=== PATIENT | female | born 1975 | race Caucasian/White ===

== ENCOUNTER 2019-04-22 | Emergency (ER) | payer OTHER ==
[2019-04-22 14:23] LABS: HEMATOCRIT 40.1 % (37.0-47.0); HEMOGLOBIN 13.3 g/dl (12.0-16.0); IMMATURE GRANULOCYTES 0.5 % (0.0-5.0); MEAN CELL VOLUME 84.1 fL CALC (80.0-100.0); MEAN CORPUSCULAR HGB 27.9 pG CALC (26.0-32.0); MEAN CORPUSCULAR HGB CONC 33.2 g/L CALC (32.0-36.0); NEUT# 7.3 thou/uL (2.00-7.15); RED BLOOD COUNT 4.77 mill/uL (4.20-5.60); RED CELL DISTRI WIDTH 12.7 % (11.5-15.5)
[2019-04-22 14:41] LABS: ALBUMIN 4.4 g/dL (3.2-5.0); ALKALINE PHOSPHATASE 104 u/l (38-126); ANION GAP 13 (6-22 (CALC)); BILIRUBIN, TOTAL 0.3 mg/dL (0.0-1.4); BUN 16 mg/dL (7-17); BUN/CREATININE RATIO 23 (12-20 (CALC)); CARBON DIOXIDE 27 mmol/l (22-30); CHLORIDE 101 mmol/l (95-108); CREATININE 0.7 mg/dL (0.5-1.0); GFR > 60 ML/MIN (>=60 (CALC)); GFR FOR AFR.AMER. > 60 ML/MIN (>=60 (CALC)); LIPASE 261 u/l (23-300); MAGNESIUM 1.6 mg/dL (1.6-2.3); POTASSIUM 3.3 mmol/l (3.5-5.1); SGOT/AST 32 u/l (14-36); SODIUM 138 mmol/l (137-146)
[2019-04-22 15:36] LABS: URINE BILIRUBIN - DIPSTICK NEGATIVE (NEGATIVE); URINE BLOOD DIPSTICK NEGATIVE (NEGATIVE); URINE COLOR YELLOW; URINE GLUCOSE - DIPSTICK NEGATIVE (NEGATIVE); URINE KETONE NEGATIVE (NEGATIVE); URINE LEUK ESTERASE NEGATIVE (NEGATIVE); URINE NITRITE - DIPSTICK NEGATIVE (Negative); URINE PROTEIN - DIPSTICK NEGATIVE (NEG-TRACE); URINE UROBILINOGEN - DIPSTICK 0.2 E.U./dL (0.2)
== END 2019-04-22 15:55 | disposition home or self-care (01) | DRG 310 ==
DX: R00.2 Palpitations (principal); R03.0 Elevated blood-pressure reading, without diagnosis of hypertension; T44.4X5A Adverse effect of predominantly alpha-adrenoreceptor agonists, initial encounter; J32.9 Chronic sinusitis, unspecified; E87.6 Hypokalemia

== ENCOUNTER 2020-04-07 09:06 | Inpatient (IN) | payer OTHER ==
[~2020-04-07] VITALS: Ht 177.8 cm; Wt 87.7 kg
[2020-04-07] VITALS (9 sets, daily range): BP systolic 135–178; BP diastolic 55–100
[~2020-04-07 09:06] MED LIST: ADDERALL7.5 MG PO; LORTAB 1010 MG PO; MOTRIN200 MG PO
--- NOTE | 2020-04-07 14:15 | NUR ---
PT ARRIVED TO ROOM 273 FROM OR AT 1415 VIA STRETCHER WITH OR STAFF; DROWSY AND ORIENTED X 3. STABLE CONDITION. C/O 4/10 PAIN TO LEFT KNEE. RESPIRATIONS EVEN AND UNLABROED ON ROOM AIR. DRESSING AND TROY WRAP TO LEFT KNEE CDI. LACTATED RINGERS INFUSING UPON ARRIVAL TO 20G IN LEFT HAND; IV SITE APPEARS HEALTHY. BLOOD PRESSURE ELEVATED. ORIENTED TO ROOM AND CALL LIGHT SYSTEM. POC REVIEWED. PT ENCOURAGED TO VERBALIZE CONCERNS; GIVEN PERSON BELONGINGS AND ICE WATER. SAFETY MEASURES IN PLACE. CALL LIGHT WITHIN REACH.
--- NOTE | 2020-04-07 15:32 | NUR ---
SCD INTACT TO RLE; IS AT BEDSIDE. EDUCATION PROVIDED AND RETURN DEMONSTRATION.
--- NOTE | 2020-04-07 15:46 | NUR ---
PT ATTEMPTED TO EVALUATE PATIENT, HOWEVER, PATIENT STATED SHE IS EXPERIENCING SEVERE L KNEE PAIN (PS 8/10) RIGHT NOW AFTER SURGERY AND WANTED TO HAVE PAIN MEDICATION FIRST AND REQUESTED TO BE SEEN AFTER AN HOUR. PT INFORMED PATIENT THE NEXT EARLIEST SHE CAN BE SEEN FOR EVALUATION IS TOMORROW. PATIENT AGREED AND REQUESTED TO BE SEEN TOMORROW INSTEAD.
--- NOTE | 2020-04-07 16:00 | NUR ---
REPORT RECEIVED FROM KAYCE ORELLANA;PT RESTING IN SEMI FOWLERS POSITION;RESPIRATIONS EVEN AND UNLABORED ON RA; PT REPORTS LEFT KNEE PAIN RATING 8/10 ON THE PAIN SCALE AND REQUESTS PAIN MEDICATION, PT MEDICATED WITH PRN DILAUDID 1MG IVP PER ORDER;IV FLUIDS INFUSING WITH EASE PER ORDER;PT ASSISTED TO BATHROOM WITH A STEADY GAIT AND ASSISTED DEVICE;PT EDUCATED TO CALL FOR ASSISTANCE WHEN COMPLETED;CALL LIGHT IN REACH;FREQUENT ROUNDING MADE.
--- NOTE | 2020-04-07 16:36 | NUR ---
SHEILA HADDAD AT BEDSIDE DISCUSSING POC.
--- NOTE | 2020-04-07 18:24 | NUR ---
PT REPORTS LEFT KNEE PAIN RATING 6/10 ON THE PAIN SCALE AND REQUESTS PRN PAIN MEDICATION, PT MEDICATED WITH PRN PERCOCET 10/325MG 1 COMBO PO AT THIS TIME;PT DENIES ANY ADDITIONAL NEEDS;CALL LIGHT IN REACH;FREQUENT ROUNDA MADE.
--- NOTE | 2020-04-07 19:45 | NUR ---
PT ASSESSED AT THIS TIME. SHE HAS ICE PACK PLACED TO LEFT KNEE. REPORTS PAIN LEVEL 4/10 ON PAIN SCALE. PT REPORTS THAT SHE HAS BEEN UP MOVING AROUND USING WALKER. RECEIVED PARTIAL BATH. POC AND MEDICATION SCHEDULE DISCUSSED WITH PT AT THIS TIME.
--- NOTE | 2020-04-07 20:45 | NUR ---
PT MEDICATED FOR PAIN AT THIS TIME, DENIES ANY OTHER NEEDS. IV FLUIDS RUNNING @20 KVO.
--- NOTE | 2020-04-07 23:14 | NUR ---
PT MEDICATED FOR PAIN 10/10 ON PAIN SCALE. ICE WATER REPLENISHED AT THIS TIME.
--- NOTE | 2020-04-08 00:39 | NUR ---
PT UP TO BSC 325CC OF CLEAR YELLOW URINE OUTPUT. ICEPACKS PLACED TO L.KNEE AND PT ASSISTED WITH BEDDING. DENIES ANY OTHER NEEDS AT THIS TIME, BUT HAS BEEN ENCOUARGED TO CALL, CONFIRMED CALL LIGHT IS AT SIDE W/IN REACH.
--- NOTE | 2020-04-08 02:42 | NUR ---
PT MEDICATED FOR PAIN 8/10 ON PAIN SCALE. AMBULATED UP TO BSC USING WALKER. ICEPACKS AT BEDSIDE WITH ICE FOR USE PRN
[2020-04-08 04:17] VITALS: BP 140/78
--- NOTE | 2020-04-08 04:26 | NUR ---
PT MEDICATED ORDERS PROVIDE AND ASSISTED IN REPOSITIONING LLE FOR COMFORT, 2X ICEPACKS PLACED TO L.KNEE. PT STATED SHE KEEPS GETTING UP AND DOWN TRYING TO MAKE IT MORE COMFORTABLE.
[2020-04-08 04:57] LABS: HEMOGLOBIN 10.2 g/dl (12.0-16.0)
--- NOTE | 2020-04-08 07:10 | NUR ---
REPORT RECEIVED FROM KAYCE WU.
--- NOTE | 2020-04-08 08:20 | NUR ---
PT RESTING IN SEMI FOWLERS POSITION,A&O X3;VS OBTAINED AND ASSESSMENT COMPLETED;PT POD #1 LEFT TOTAL KNEE ARTHROPLASTY;PT REPORTS LEFT KNEE PAIN RATING 7/10 ON THE PAIN SCALE AND REQUESTS PAIN MEDICATION, PT TO BE MEDICATED WITH PRN PERCOCET 10/325MG PO 2 COMBO PER ORDER;RESPIRATIONS EVEN AND UNLABORED ON RA,CLEAR LUNG SOUNDS;I.S. AT BEDSIDE AND PT EDUCATED ON USE AND ENCOURAGED USE 10X PER HOUR;ABDOMEN SOFT ON PALPATION AND ACTIVE IN ALL 4 QUADRANTS;DRESSING TO LEFT KNEE CDI;STRONG PEDAL PULSES NOTED;#20G TO LEFT HAND INFUSING LR @ 20ML/HR,SITE APPEARS HEALTHY;PT DENIES ANY ADDITIONAL NEEDS AT THIS TIME AND IS ENCOURAGED TO CALL FOR ASSISTANCE IF NEEDED;FALL PRECAUTIONS IN PLACE WITH BED IN THE LOWEST POSITION AND CALL LIGHT IN REACH;FREQUENT ROUNDS MADE.
[2020-04-08 08:26] VITALS: BP 138/82
--- NOTE | 2020-04-08 08:39 | NUR ---
AT BEDSIDE DISCUSSING POC.
--- NOTE | 2020-04-08 09:50 | NUR ---
PT AMBULATING THE HALLWAY WITH PHYSICAL THERAPY AND ASSISTED DEVICE.
--- NOTE | 2020-04-08 11:45 | NUR ---
PT RESTING IN SEMI FOWLERS POSITION;RESPIRATIONS EVEN AND UNLABORED ON RA;PT REPORTS LEFT KNEE PAIN AND REQUESTS PRN PAIN MEDICATION, PT MEDICATED WITH PRN TORADOL 30MG IVP;IV SITE REMAINS PATENT;DRESSING TO LLE CDI;PT DENIES ANY ADDITIONAL NEEDS AND IS ENCOURAGED TO CALL FOR ASSISTANCE IF NEEDED;FALL PRECAUTIONS IN PLACE WITH CALL LIGHT IN REACH;FREQUENT ROUNDS MADE.
--- NOTE | 2020-04-08 12:30 | NUR ---
PT MEDICATED WITH PRN PERCOCET 10/325MG PO 2 COMBO FOR LEFT KNEE PAIN RATING 6/10 ON THE PAIN SCALE PER REQUEST;PT DENIES ANY ADDITIONAL NEEDS;CALL LIGHT IN REACH;FREQUENT ROUNDS MADE.
--- NOTE | 2020-04-08 14:34 | NUR ---
PHYSICAL THERAPY AT BEDSIDE WORKING WITH PT.
--- NOTE | 2020-04-08 15:07 | NUR ---
PM TX- PT SAFELY AND INDEPENDENTLY ASSUME SITTING FROM SUPINE AND STOOD UP WITH GOOD IMMEDIATE STANDING BALANCE. PT THEN PROCEEDED TO AMBULATE IN THE HALLWAY W/ RW X 100 FT X 2 DEMONSTRATING IMPROVED GAIT PATTERN INSTRUCTED BY THERAPIST. AFTERWARDS, PT PERFORMED SEATED HEEL-TOE RAISES X 10 REPS X 2 SETS; HEEL SLIDES X 10 REPS X 2 SETS; ACTIVE SEATED HAMSTRING STRETCH X 15 SEC HOLD X 5 SETS. PT REPORTS FEELING BETTER POST TX. SHE WAS INSTRUCTED TO APPLY COLD PACK ON L KNEE X 15 MINS X 5X/DAY. LEFT PT SAFELY SITTING ON EDGE OF BED AT THE END OF TX.
[2020-04-08 16:00] VITALS: BP 156/88
--- NOTE | 2020-04-08 16:30 | NUR ---
PT RESTING IN RECLINER;RESPIRATIONS EVEN AND UNLABORED ON RA;PT REPORTS LEFT KNEE PAIN RATING 5/10 ON THE PAIN SCALE AND REQUESTS PAIN MEDICATION, PT MEDICATED WITH PRN PERCOCET 10/325MG PO 2 COMBO AT THIS TIME;IV SITE REMAINS PATENT;LLE DRESSING REMAINS CDI;PT DENIES ANY ADDITIONAL NEEDS AND IS ENCOURAGED TO CALL FOR ASSISTANCE IF NEEDED;CALL LIGHT IN REACH;FREQUEN ROUNDS MADE.
--- NOTE | 2020-04-08 17:40 | NUR ---
PT AMBULATING THE HALLWAY WITH A STEADY GAIT AND ASSISTED DEVICE.
[2020-04-08 19:15] VITALS: BP 145/92
--- NOTE | 2020-04-08 21:26 | NUR ---
PT MEDICATED FOR PAIN 6/10 ON PAIN SCALE. SHE VOICED CONCERN REGARDING HER LEG BEING EDEMATOUS AND REDDENED/WARM TO TOUCH. INCISION APPEARS CDI AND MINIMAL REDNESS TO INCISION AREA, BUT SURROUNDING AREA TO KNEE IS MILDLY WARM TO TOUCH AND APPEARS MILDLY RED WITH MODERATE EDEMA. PEDAL PULSES ARE INTACT AND CIRCULATION APPEARS INTACT AT THIS TIME. PT C/O FEELING COLD, TEMPERATURE ASSESSED AT THIS TIME TO BE 98.0 INSTRUCTED HER TO CALL WITH ANY FURTHER CONCERNS, VERBALIZED UNDERSTANDING. CALL LIGHT AT SIDE.
--- NOTE | 2020-04-08 22:17 | NUR ---
PT CALLED TO REPORT THAT HER KNEE WAS HURTING, UPON ENTERING THE ROOM, SHE WAS SITTING IN RESTROOM, DENYING NEED FOR ASSISTANCE, WALKER AT SIDE. PT'S BED WAS STRAIGHTENED AT THIS TIME. PT REPORTS THAT IT FEELS BETTER TO BE UP AND MOVING THAN LAYING IN BED, REPORTS THAT HIS KNEE THROBS LESS WHEN SHE IS UP. PT PROCEEDED TO WALK THE GILLIS FOR EXERCISE AND VISITED A LITTLE AT THE NURSES STATION, [employer]ER[employer] MANAGER PLACED A RECLINER NEXT TO HER BED AND PREPARED IT FOR COMFORT, PT STATES SHE IS GOING TO TRY THIS TO SEE IF IT HELPS HER GET COMFORT.
--- NOTE | 2020-04-09 01:24 | NUR ---
PT UP WALKING AROUND THE ROOM W/WALKER, SHE CALLED ASKING FOR PAIN MEDICATION. MEDICATED FOR REPORTED PAIN 7/10 ON PAIN SCALE. PT SELF AMBULATED WITH USE OF WALKER TO RESTROOM, PT STATED SHE WILL MOVE BACK TO THE WALKER, DENIED ANY ASSISTANCE. I INSTRUCTED PT TO CALL IF SHE NEEDS ANY ASSISTANCE AT ALL OR FEELS UNSTEADY, NOT TO GET UP BY HERSELF, SHE VERBALIZED UNDERSTANDING.
[2020-04-09 04:00] VITALS: BP 152/88
--- NOTE | 2020-04-09 04:00 | NUR ---
PT AMBULATING HALLWAY. ASKED FOR PAIN MEDICATION/PROVIDED ORDERS PROVIDE AND WALKED WITH PT BACK TO ROOM. DENIES ANY OTHER NEEDS. ENCOURAGED HER TO CALL NEEDS ARISE.
--- NOTE | 2020-04-09 05:26 | NUR ---
PT SITTING IN RECLINER, REPORTS HAVING PAIN 5/10 ON PAIN SCALE. DENIES ANY OTHER NEEDS OF ASSISTANCE AT THIS TIME. CALL LIGHT W/IN REACH.
[2020-04-09 06:34] LABS: HEMATOCRIT 31.2 % (37.0-47.0); HEMOGLOBIN 9.7 g/dl (12.0-16.0)
[2020-04-09 07:56] VITALS: BP 141/71
--- NOTE | 2020-04-09 07:56 | NUR ---
RECIEVED REPORT FROM KAYCE WU. PT SITTING ON SIDE OF BED UPON ENTERING ROOM. INTRODUCED SELF TO PT AND DISCUSSED POC. PT IS A/OX3. ASSESSMENT AND VITALS COMPLETED. BP 141/71, HR 77, O2 100% ON ROOM AIR. RESPIRATIONS ARE EVEN AND UNLABORED WITH NO SIGNS OF DISTRESS NOTED. RHEA SOUNDS ARE CLEAR. HEART RHYTHM IS NORMAL . BOWEL SOUNDS ARE ACTIVE IN ALL QUADRANTS, LAST REPORETD BM 04/06/2020. STOOL SOFTNER AND MIRLAX ADMINISTERED. #20G IN LEFT HAND FLUSHED, SITE APPEARS TO BE LEAKING. PT REFUSED START OF ANOTHER IV STATING " IM GOING TO BE GOING HOME." PT COMPLAINS OF 3/10 PAIN IN LEFT KNEE.PT REFUSES ANY MEDICATION AT THIS TIME. PT IS POD #2 FROM RIGHT KNEE REPLACEMENT. DRESSING REAMINS CDI AT THIS TIME. ALL SAFETY AND ISOLATION PRECAUTIONS ARE IN PLACE WITH CALL LIGHT IN REACH. WILL CONTINUE TO MONITOR
--- NOTE | 2020-04-09 10:10 | NUR ---
PT COMPLAINS OF 10/10 PAIN IN LEFT KNEE. PAIN MEDICATION ADMINISTERED. RESPIRATIONS ARE EVEN AND UNLABORED ON ROOM AIR. PT DENIES ANY ADIDTIONAL NEEDS AT THIS TIME. ALL SAFETY PRECAUTIONS ARE IN PLACE WITH CALL LIGHT IN REACH. WILL CONTINUE TO MONITOR
--- NOTE | 2020-04-09 10:38 | NUR ---
REASSESSMENT OF PAIN AT THIS TIME RESULTING IN 01/02. RESPIRATIONS REAMINS EVEN AND UNLABORED ON ROOM AIR. PT RESTING IN CHAIR. ALL SAFETY PRECAUTIONS ARE IN PLACE WITH CALL LIGHT IN REACH. WILL CONTINUE TO MONITOR
[2020-04-09] MEDS ORDERED: ONDANSETRON4 MG/2 M1 IV (11:08)
[2020-04-09] MEDS ORDERED: SENNA-PLUS1 TAB PO (11:09)
[2020-04-09] MEDS ORDERED: MOTRIN800 MG PO (11:24)
--- NOTE | 2020-04-09 11:48 | NUR ---
AM TX- PT WAS SEEN FOR GT THIS AM. PROVIDED SBA ON TRANSFERS AND AMB W/ RW. CONSTANT VERBAL CUES FOR PROPER POSTURE AND CORRECT GAIT PATTERN. PT WAS ABLE TO FOLLOW INSTRUCTIONS AND EXECUTED GOOD GAIT PATTERN ALTHROUGHOUT. SHE REPORTS KNEE FEELING LOOSENED UP SHE AMBULATED IN THE HALLWAY W/ RW AND SBA X 100 FT X 2. PT ALSO REPORTED INCREASING PRESSURE AT THE BACK OF KNEE THAT FEELS LIKE A [place]QUET DURING PROLONGED RECUMBENT SUPINE POSITION. PT RETURNED TO HER ROOM AND REQUESTED TO SIT IN THE CHAIR. PT PERFORMED SITTING HEEL SLIDES AND ISOMETRIC LONG ARC QUADS X 10 SEC HOLD X 10 REPS X 3 SETS; SEATED HEEL SLIDES X 10 REPS X 3 SETS. LEFT PT W/O COMPLAINTS. CALL BAEZ WAS HANDED TO HER. [facility]: 16 POINTS
[2020-04-09] MEDS ORDERED: KLONOPIN0.5 MG PO (12:19)
--- NOTE | 2020-04-09 12:44 | NUR ---
PT EDUCATED ON DISCHARGE INSTRUCTIONS. PT VERBALIZED UNDERSTANDING. PT BEING DISCHARGED WITH DR DAVIS [facility]. IV REMOEVED WITH CATHATER STILL INTACT. PT RESTING IN SEMI FOWLERS POSITION WITH ICE APPLIED TO LEFT KNEE. TEGADURM APPLIED WITH 4X4 GAUZE, DRESSING IS CDI AT THIS TIME. AWAITING FOR TRANSPORTATION AT THIS TIME. WILL CONTINUE TO MONITOR
--- NOTE | 2020-04-09 14:03 | NUR ---
PT REVIEWED HEP WITH PATIENT AND PATIENT ABLE TO CORRECTLY AND SAFELY PERFORM EXERCISES WHICH INCLUDE: AAROME L HIP FLEXION AND ABDUCTION USING BED SHEET X 10 REPS ON EACH, QUADS MUSCLE SETTING X 6 SECS HOLD X 10 REPS, HEEL SLIDES X 10 REPS, ANKLE PUMPS X 10 REPS. AMPAC = 16
--- NOTE | 2020-04-09 14:10 | NUR ---
Discharge instructions given. Patient verbalizes understanding of same. Discharged in stable condition via Wheelchair to Home with staff. All belongings sent with pt. PT DISCHARGED IN STABLE CONDITION VIA WHEELCHAIR WITH ALL BELONGINGS AND DISCHARGE INSTRUCTIONS. PT DISCHARGED WITH [facility]
== END 2020-04-09 14:12 | disposition home health service (06) | DRG 470 ==
LOC: ORM 09:06 → MS2 14:15 → ORM 15:00 → MS2 04-09 14:12
PROVIDERS: ADMIT Internal Medicine; ATTEND Orthopaedic Surgery
PROC: 0SRD0JA Replacement of Left Knee Joint with Synthetic Substitute, Uncemented, Open Approach (ICD-10-PCS; principal; 2020-04-07)
PROC: 3E0T3BZ Introduction of Anesthetic Agent into Peripheral Nerves and Plexi, Percutaneous Approach (ICD-10-PCS; 2020-04-07)
DX: M17.12 Unilateral primary osteoarthritis, left knee (principal); Z85.820 Personal history of malignant melanoma of skin; Z20.828 Contact with and (suspected) exposure to other viral communicable diseases
CPT/HCPCS: J0131

== ENCOUNTER 2021-10-15 08:29 | Emergency (ER) | payer OTHER, BC ==
[2021-10-15] VITALS (7 sets, daily range): BP systolic 143–179; BP diastolic 75–89
[~2021-10-15] VITALS: Ht 177.8 cm; Wt 64.0 kg
[~2021-10-15 08:29] MED LIST changes: +KLONOPIN0.5 MG PO; +MOTRIN800 MG PO; +ONDANSETRON4 MG/2 M1 IV; +SENNA-PLUS1 TAB PO
[2021-10-15 09:20] LABS: HEMATOCRIT 37.2 % (37.0-47.0); IMMATURE GRANULOCYTES 0.2 % (0.0-5.0); MEAN CELL VOLUME 84.5 fL CALC (80.0-100.0); MEAN CORPUSCULAR HGB 27.3 pG CALC (26.0-32.0); MEAN CORPUSCULAR HGB CONC 32.3 g/dL CAL (32.0-36.0); NEUT# 4.03 thou/uL (2.00-7.15); RED BLOOD COUNT 4.4 mill/uL (4.20-5.60); RED CELL DISTRI WIDTH 13.6 % (11.5-15.5)
[2021-10-15 09:34] LABS: ALBUMIN 4.2 g/dL (3.2-5.0); ANION GAP 10 (6-22 (CALC)); BILIRUBIN, TOTAL 0.4 mg/dL (0.0-1.4); BUN 14 mg/dL (7-17); BUN/CREATININE RATIO 22 (12-20 (CALC)); CARBON DIOXIDE 29 mmol/l (22-30); CHLORIDE 101 mmol/l (95-108); CREATININE 0.6 mg/dL (0.5-1.0); GFR FOR AFR.AMER. > 60 ML/MIN (>=60 (CALC)); GFR OTHER RACES > 60 ML/MIN (>=60 (CALC)); LIPASE 79 u/l (23-300); POTASSIUM 3.8 mmol/l (3.5-5.1); SGOT/AST 25 u/l (14-36); SODIUM 136 mmol/l (137-146); TOTAL PROTEIN 7.5 g/dL (6.3-8.2)
[2021-10-15 09:37] LABS: ALKALINE PHOSPHATASE 118 u/l (38-126)
[2021-10-15 10:03] LABS: TSH, 3RD GENERATION 0.19 uIU/mL (0.47 - 4.68)
== END 2021-10-15 14:12 | disposition home or self-care (01) | DRG 310 ==
LOC: ED 08:29
PROVIDERS: Family Medicine
DX: R00.2 Palpitations (principal); F41.9 Anxiety disorder, unspecified; Z20.822 Contact with and (suspected) exposure to COVID-19
CPT/HCPCS: Q9967

== ENCOUNTER 2023-11-25 15:26 | Emergency (ER) | payer SELFPAY ==
[~2023-11-25] VITALS: Ht 177.8 cm; Wt 81.6 kg
[2023-11-25 16:34] VITALS: BP 158/88
[2023-11-25] MEDS ORDERED: LIDOcaine HCl 1% (Local Anesth.) 20 ML VIAL STI STA (16:39)
[2023-11-25] MEDS ORDERED: POVIDONE IODINE 0.5 OZ/BTL TOP ONE (16:40)
[2023-11-25] MEDS ORDERED: NEOMYCIN-BACITRACIN-POLYMYXIN 0.5 GM/PAK PAK TOP ONE (16:40)
[2023-11-25] MEDS ORDERED: SODIUM CHLORIDE 500 ML BTL IR ONE (16:40)
[2023-11-25] MEDS ORDERED: BUPIVACAINE HCL PF 0.5 % 50 MG/10 ML SDV STI ONE (16:40)
[2023-11-25 16:45] VITALS: BP 154/88
[2023-11-25 17:01] VITALS: BP 113/87
[2023-11-25 17:15] VITALS: BP 168/96
[2023-11-25 17:30] VITALS: BP 172/84
[2023-11-25 17:33] VITALS: BP 172/84
== END 2023-11-25 17:45 | disposition home or self-care (01) | DRG 605 ==
LOC: ED 15:26
PROC: 0HDRXZZ Extraction of Toe Nail, External Approach (ICD-10-PCS; principal; 2023-11-25)
DX: S91.201A Unspecified open wound of right great toe with damage to nail, initial encounter (principal); W22.09XA Striking against other stationary object, initial encounter